=== PATIENT | male | born 1955 | race Caucasian/White ===

== ENCOUNTER 2017-12-18 17:30 | Emergency (ER) | payer MEDICAID ==
[2017-12-18] MEDS ORDERED: KETOROLAC TROMETHAMINE 30MG/ML ONE (18:01)
== END 2017-12-18 18:35 | disposition home or self-care (01) ==
LOC: EDH 17:30
DX: G89.29 Other chronic pain (principal); M54.5 Low back pain; M54.2 Cervicalgia; I10 Essential (primary) hypertension; Z88.0 Allergy status to penicillin; Z91.030 Bee allergy status; Z72.0 Tobacco use
CPT/HCPCS: 96372; 99283; J1885

== ENCOUNTER 2022-03-09 11:40 | Emergency (ER) | payer MEDICAID ==
[~2022-03-09] VITALS: Ht 172.7 cm; Wt 61.2 kg
[2022-03-09 12:50] VITALS: BP 152/92
[2022-03-09 12:53] LABS: BASOPHILS % (AUTO) 0.3 % (0.0-5.0); EOSINOPHILS % (AUTO) 0.3 % (0.0-8.0); HEMATOCRIT 42.3 % (42-54); LYMPHOCYTES % (AUTO) 8.6 % (21.0-51.0); MEAN CORPUSCULAR HEMOGLOBIN 33.1 pg (27.0-33.0); MEAN CORPUSCULAR HGB CONC 34.3 g/dL (32.0-36.0); MEAN CORPUSCULAR VOLUME 96.6 fL (79-99); NEUTROPHILS % (AUTO) 76.5 % (40.0-77.0); PLATELET COUNT (AUTO) 165 K/uL (130-400); RED BLOOD CELL COUNT(AUTO) 4.38 MIL/uL (4.50-6.20); RED CELL DISTRIBUTION WIDTH 11.9 % (11.0-15.5); WHITE BLOOD COUNT (AUTO) 9.7 K/uL (4.8-10.8)
[2022-03-09 13:01] LABS: CREATININE 0.6 mg/dL (0.5-1.5); POTASSIUM 4.3 mmol/L (3.5-5.1)
[2022-03-09 13:05] LABS: ALBUMIN 3.7 g/dL (3.5-5.0); BILIRUBIN,TOTAL 0.8 mg/dL (0.2-1.0); TOTAL PROTEIN, SERUM 7.9 g/dL (6.0-8.3)
[2022-03-09] MEDS ORDERED: KETOROLAC 15MG/ML VIAL (15MG/ML) IV ONE (14:00)
[2022-03-09] MEDS ORDERED: MORPHINE 2 MG SYG IVP ONE (14:00)
[2022-03-09] MEDS ORDERED: ONDANSETRON 4MG INJ IVP ONE (14:00)
[2022-03-09] MEDS ORDERED: NAPR500T6 PO (15:47)
== END 2022-03-09 16:16 | disposition home or self-care (01) ==
LOC: EDH 11:40
DX: S70.02XA Contusion of left hip, initial encounter (principal); S70.12XA Contusion of left thigh, initial encounter; I10 Essential (primary) hypertension; Z90.89 Acquired absence of other organs; W01.0XXA Fall on same level from slipping, tripping and stumbling without subsequent striking against object, initial encounter; Y93.89 Activity, other specified; Y92.89 Other specified places as the place of occurrence of the external cause; Y99.8 Other external cause status
CPT/HCPCS: 36415; 72192; 73502; 73610; 80053; 85025; 96374; 96375; 99285; J1885; J2405

== ENCOUNTER 2024-12-24 18:23 | Emergency (ER) | payer OTHER, MEDICARE ==
[~2024-12-24] VITALS: Ht 172.7 cm; Wt 67.1 kg
[~2024-12-24 18:23] MED LIST: NAPR-1506 PO
[2024-12-24 18:43] VITALS: BP 145/86; PULSE 81; RESP 16; TEMP 98.4; O2SAT 97
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
[2024-12-24] MEDS: HYDROcodone/APAP 5/325 1 TAB TABLET PO ONE (19:13)
--- NOTE | 2024-12-24 19:39 | NUR ---
HOME ADDRESS IS [address] [place] [address]
[2024-12-25] MEDS ORDERED: ACET-66 PO (15:27)
[2024-12-25] MEDS ORDERED: DICL100G32 TP (15:27)
== END 2024-12-24 19:46 | disposition home or self-care (01) ==
LOC: EDH 18:23
DX: G89.29 Other chronic pain (principal); M25.561 Pain in right knee; E78.00 Pure hypercholesterolemia, unspecified; I10 Essential (primary) hypertension; Z88.0 Allergy status to penicillin; Z91.030 Bee allergy status
CPT/HCPCS: 99283

== ENCOUNTER 2024-12-25 14:01 | Emergency (ER) | payer OTHER, MEDICARE ==
[~2024-12-25] VITALS: Ht 172.7 cm; Wt 65.8 kg
--- NOTE | 2024-12-25 14:44 | HMCIMG ---
KNEE 3VWS RT HISTORY: Chronic knee pain COMPARISON: None TECHNIQUE: 3 images of right knee were obtained. FINDINGS: Postop changes are seen of the right proximal tibia. There is no acute displaced fracture or dislocation. There is soft tissue swelling. Degenerative changes are seen. IMPRESSION: 1. Findings as described above.
[2024-12-25] MEDS ORDERED: DICL100G32 TP (15:27)
[2024-12-25] MEDS ORDERED: ACET-66 PO (15:27)
--- NOTE | 2024-12-25 15:28 | ERN ---
ED Note History of Present Illness Stated Complaint: RIGHT KNEE PAIN Chief Complaint: Knee Injury/Swelling Time Seen by MD: 14:03 Time Seen by Midlevel: 14:03 Dictation: 69-year-old male who presents to the ED for evaluation of right knee pain and he has had for the past six weeks. Patient reports pain and swelling. Reports he has been seen and multiple facilities over the past few days requesting hydrocodone since he ran out. [place] [facility] [place] and verbalized x-rays were negative but was not prescribed any pain medications. Denies any new trauma, injuries. Allergies: Coded Allergies: Penicillins (Unverified Allergy, Unknown, 12/24/24) bee pollen (Unverified Allergy, Unknown, 12/24/24) bee venom protein (honey bee) (Unverified Allergy, Unknown, 12/24/24) Home Meds Active Scripts Naproxen (Naproxen) 500 Mg Tablet., 500 MG PO BIDPC, #15 TAB Prov:RICK BARTON 03/09/22 Past Medical History Past Medical History: High Cholesterol, Hypertension Additional Past Medical Hx: NECK AND RIB FX Surgical History: None RN Note Reviewed/Agreed w/PFSH: Yes Review of System Dictation Constitutional: Negative for fever,chills, and weight loss Eyes: Negative for injury, pain,redness, and discharge ENT: Negative for injury,pain or swelling Cardiovascular: Negative for chest pain, palpitations, and edema Respiratory: Negative for shortness of breath, cough, and wheezing, Abdomen/GI: Negative for abdominal pain, nausea, vomiting, diarrhea, and constipation Back: Negative for injury and pain : Negative for injury, bleeding and discharge MS/Extremity: Negative for injury and deformity Skin: Negative for rash, and discoloration Neuro: Negative for headache, weakness, numbness, tingling, and seizure Psych: Negative for suicide ideation, homicidal ideation, and hallucinations Review of Systems: was completed Initial Vital Sign VS Vital Signs Date Time Temp Pulse Resp B/P (MAP) Pulse Ox O2 Delivery O2 Flow Rate FiO2 12/25/24 14:03 98.1 80 16 100/74 98 Room Air 0 Physical Exam Dictation General: awake, alert, NAD Head/Face: Normocephalic, atraumatic Eyes: PERRL, EOMI, vision at baseline ENT: oral cavity clear, TMs clear, no signs of infection Neck: Trachea midline, supple, no nuchal rigidity Cardiovascular: RRR, normal S1/S2, No MRGs, no JVD Respiratory: CTAB, no respiratory distress, No rales or wheezes Abdomen: Soft, non-tender, non-distended, normal bowel sounds, no guarding or rebound. Skin: Warm, dry, normal turgor, no rash MS/Extremity: Pulses equal, no cyanosis, neurovascular intact, limited ROM secondary to pain Neuro: COAx4, GCS 15, strength 5/5, CN 2-12 intact, normal cerebellar exam, normal gait, Psych: Normal behavior, mood, and affect normal Results (Laboratory/Radiology) Laboratory/Radiology REASON: chronic knee pain ORDERING PHYSICIAN: JOAO YANEZ PROCEDURE: KNEE 3V RT - KNEE 3VWS RT KNEE 3VWS RT HISTORY: Chronic knee pain COMPARISON: None TECHNIQUE: 3 images of right knee were obtained. FINDINGS: Postop changes are seen of the right proximal tibia. There is no acute displaced fracture or dislocation. There is soft tissue swelling. Degenerative changes are seen. IMPRESSION: 1. Findings as described above. Labs Reviewed?: Yes ED Course ED Course Orders Procedure Category Date Status Time Ketorolac PHA 12/25/24 Complete Tromethamine 15mg/Ml 14:30 Knee 3vws Rt RAD 12/25/24 Resulted 14:12 Current Medications Medications (Trade) Dose Ordered Sig/Kim Route PRN Reason Start Time Stop Time Status Last Admin Dose Admin Ketorolac Tromethamine (toRADol) 15 mg ONCE ONCE IM 12/25/24 14:30 12/25/24 14:31 DC Vital Signs Date Time Temp Pulse Resp B/P (MAP) Pulse Ox O2 Delivery O2 Flow Rate FiO2 12/25/24 14:03 98.1 80 16 100/74 98 Room Air 0 Medical Decision Making MDM MDM: Differential diagnosis: Chronic knee pain, osteoarthritis, fracture, dislocation Need for hospitalization: Patient does meet criteria for hospitalization. Need for emergency major/minor surgery: No I independently interpreted the test that were performed, results were reviewed by me and considered findings on radiology if ordered. Medical management and examination interpretation discussions were had by me with other qualified healthcare professionals as indicated for the patient's care. 69-year-old male who presents to the ED for evaluation of right knee pain and he has had for the past six weeks. Patient reports pain and swelling. Reports he has been seen and multiple facilities over the past few days requesting hydrocodone since he ran out. Patient [place] [facility] [place] and verbalized x-rays were negative but was not prescribed any pain medications. Denies any new trauma, injuries. Patient was some mild swelling to the right knee. No overlying erythema, skin changes. Patient afebrile, nonseptic appearing with low suspicion for septic arthritis. Patient's x-ray showed no acute finding. Patient was given pain medication here in the ER will be discharged home in stable dose recommended follow up with PCP for stronger pain medication and recommended to follow up with pain management if continues with pain sat prescribe him the medication he wants. DX & DISP Disposition: Discharge Departure Impression: Primary Impression: Chronic pain of right knee Condition: Stable Scripts Diclofenac Sodium (Diclofenac Sodium) 3 % Gel..gram. 1 APPL TP BID for 30 Days, #100 GM 0 Refills Prov: JOAO YANEZ 12/25/24 Acetaminophen (Acetaminophen) 500 Mg Tablet 1 TAB PO Q6HPRN PRN for pain or fever for 15 Days, #60 TAB 0 Refills Prov: JOAO YANEZ 12/25/24 Additional Instructions: DISCHARGE HOME. REST. FOLLOW UP WITH PRIMARY CARE DRJoy IN 24 HOURS. RETURN TO THE ER FOR ANY ACUTE CHANGE. PATIENT WAS ALSO ADVISED TO FOLLOW-UP WITH PRIMARY CARE PHYSICIAN IN 1 TO 2 DAYS FOR CONTINUED MONITORING. ALL INSTRUCTIONS WERE GIVEN TO [place]S TERM AND PATIENT AGREEABLE TO DISCHARGE AND PROPER FOLLOW-UP. Referrals: LUCIO HERRERA MD (PCP) I have reviewed the case, and I agree with, Diagnosis and Plan JOAO YANEZ Dec 25, 2024 15:28
[2024-12-25] MEDS: ketOROlac 15MG/ML VIAL (15MG/ML) IM ONE (15:53)
[2024-12-25 16:11] VITALS: BP 111/68; PULSE 78; RESP 16; TEMP 97.8; O2SAT 100
== END 2024-12-25 16:22 | disposition home or self-care (01) ==
LOC: EDH 14:01
DX: G89.29 Other chronic pain (principal); M25.561 Pain in right knee; E78.00 Pure hypercholesterolemia, unspecified; I10 Essential (primary) hypertension; Z88.0 Allergy status to penicillin; Z91.030 Bee allergy status
CPT/HCPCS: 99283; 73562; 96372; J1885

== ENCOUNTER 2025-01-03 21:08 | Emergency (ER) | payer OTHER, MEDICARE ==
[~2025-01-03] VITALS: Ht 172.7 cm; Wt 59.0 kg
[~2025-01-03 21:08] MED LIST changes: +ACET-66 PO; +DICL100G32 TP
--- NOTE | 2025-01-03 22:04 | NUR ---
PT OUTSIDE SMOKING, REPORTED DURING TRIAGE HE WAS A " FORMER SMOKER"
--- NOTE | 2025-01-03 22:41 | NUR ---
PT RETURNED TO ROOM AT THIS TIME FROM SMOKING CIGARETTE
[2025-01-03 22:55] VITALS: TEMP 98.3
[2025-01-03 23:39] LABS: BASOPHILS # (AUTO) 0.04 K/uL (0.00-0.20); BASOPHILS % (AUTO) 0.6 % (0.0-5.0); EOSINOPHILS # (AUTO) 0.26 K/uL (0.00-0.70); EOSINOPHILS % (AUTO) 3.8 % (0.0-8.0); HEMATOCRIT 33.1 % (42-54); IMMATURE GRANULOCYTE ABSOLUTE 0.02 K/uL (0-1); LYMPHOCYTES # (AUTO) 1.5 K/uL (1.0-4.8); LYMPHOCYTES % (AUTO) 22.5 % (21.0-51.0); MEAN CORPUSCULAR HEMOGLOBIN 30.4 pg (27.0-33.0); MEAN CORPUSCULAR HGB CONC 32.3 g/dL (32.0-36.0); MONOCYTES % (AUTO) 14.1 % (3.0-13.0); NEUTROPHILS % (AUTO) 58.7 % (40.0-77.0); PLATELET COUNT (AUTO) 282 K/uL (130-400); RED BLOOD CELL COUNT(AUTO) 3.52 MIL/uL (4.50-6.20); RED CELL DISTRIBUTION WIDTH 14.4 % (11.0-15.5); WHITE BLOOD COUNT (AUTO) 6.8 K/uL (4.8-10.8)
[2025-01-03 23:47] LABS: CREATININE 0.7 mg/dL (0.5-1.3); POTASSIUM 3.7 mmol/L (3.5-5.1)
[2025-01-03 23:53] LABS: BILIRUBIN,TOTAL 0.3 mg/dL (0.2-1.0); TOTAL PROTEIN, SERUM 6.7 g/dL (6.0-8.3)
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
--- NOTE | 2025-01-04 01:25 | NUR ---
PT OUTSIDE SMOKING
[2025-01-04] MEDS: furoSEMIDE 20MG VIAL IV ONE (02:20)
[2025-01-04 03:53] VITALS: BP 140/83; PULSE 80; RESP 14; O2SAT 97
--- NOTE | 2025-01-04 08:25 | HMCIMG ---
Exam Type: US VENOUS DOPPLER BILATERAL Clinical Information: swelling post surgery Comparison: None Findings: The examination shows normal deep venous system. There is normal compressibility at all levels. There is no intraluminal clot. There is no occlusion. Adequate response is obtained on augmentation. Impression: No evidence of DVT.
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
== END 2025-01-04 03:55 | disposition home or self-care (01) ==
LOC: EDH 21:08
DX: R60.0 Localized edema (principal); E78.00 Pure hypercholesterolemia, unspecified; I10 Essential (primary) hypertension; Z88.0 Allergy status to penicillin; Z90.89 Acquired absence of other organs; Z91.030 Bee allergy status
CPT/HCPCS: 99284; 93970; 80053; 85025; 36415; 73565; 84145; 96374; J1940; 99283; 73560

== ENCOUNTER 2025-03-19 17:11 | Emergency (ER) | payer OTHER, MEDICARE ==
[~2025-03-19] VITALS: Ht 172.7 cm; Wt 68.0 kg
[2025-03-19 17:20] VITALS: TEMP 98.5
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
[2025-03-19] MEDS: ketOROlac 15MG/ML VIAL (15MG/ML) IV SCH (18:04)
[2025-03-19 18:08] LABS: BASOPHILS # (AUTO) 0.03 K/uL (0.00-0.20); BASOPHILS % (AUTO) 0.5 % (0.0-5.0); EOSINOPHILS # (AUTO) 0.18 K/uL (0.00-0.70); EOSINOPHILS % (AUTO) 3.1 % (0.0-8.0); HEMATOCRIT 33.4 % (42-54); IMMATURE GRANULOCYTE ABSOLUTE 0.02 K/uL (0-1); LYMPHOCYTES # (AUTO) 0.9 K/uL (1.0-4.8); LYMPHOCYTES % (AUTO) 14.4 % (21.0-51.0); MEAN CORPUSCULAR HEMOGLOBIN 32.5 pg (27.0-33.0); MEAN CORPUSCULAR HGB CONC 34.4 g/dL (32.0-36.0); MEAN CORPUSCULAR VOLUME 94.4 fL (79-99); MONOCYTES # (AUTO) 0.7 K/uL (0.1-1.0); MONOCYTES % (AUTO) 12.2 % (3.0-13.0); NEUTROPHILS # (AUTO) 4.1 K/uL (1.8-7.7); NEUTROPHILS % (AUTO) 69.5 % (40.0-77.0); PLATELET COUNT (AUTO) 162 K/uL (130-400); RED BLOOD CELL COUNT(AUTO) 3.54 MIL/uL (4.50-6.20); RED CELL DISTRIBUTION WIDTH 14.2 % (11.0-15.5); WHITE BLOOD COUNT (AUTO) 5.9 K/uL (4.8-10.8)
[2025-03-19 18:16] LABS: CREATININE 0.6 mg/dL (0.5-1.3); POTASSIUM 3.3 mmol/L (3.5-5.1)
[2025-03-19 18:48] LABS: B-TYPE NATRIURETIC PEPTIDE 86 pg/mL (0-100)
[2025-03-19] MEDS ORDERED: SULF1TAB42 PO (19:14)
[2025-03-19] MEDS: sulfaMETHOX-TMP DS 800/160 TAB PO SCH (19:29)
[2025-03-19] MEDS: PoTASSium BIcarbonate/CIT AC 25 MEQ TABLET.EFF PO SCH (19:29)
[2025-03-19] MEDS: HYDROcodone/APAP 5/325 1 TAB TABLET PO SCH (19:29)
[2025-03-19 19:33] VITALS: BP 139/80; PULSE 87; RESP 17; O2SAT 98
--- NOTE | 2025-03-20 02:37 | HMCIMG ---
EXAM: US for Deep Venous Thrombosis, bilateral Lower Extremity. CLINICAL HISTORY: Leg swelling. TECHNIQUE: Real-time ultrasound scan of the veins of the bilateral lower extremity with color Doppler flow, spectral waveform analysis and compression. COMPARISON: None provided. FINDINGS: DEEP VEINS: The common femoral, superficial femoral, and popliteal veins are echolucent and compressible. There is normal color Doppler flow throughout. The visualized calf veins appear patent. SOFT TISSUES: There is a 5.4 x 6.4 x 1.5 cm suprapatellar effusion on the right side. IMPRESSION: No deep venous thrombosis within the bilateral lower extremity veins. Suprapatellar effusion on the right side. /[place]
== END 2025-03-19 19:58 | disposition home or self-care (01) ==
LOC: EDH 17:11
DX: L03.115 Cellulitis of right lower limb (principal); L03.116 Cellulitis of left lower limb; M25.469 Effusion, unspecified knee; E78.00 Pure hypercholesterolemia, unspecified; I10 Essential (primary) hypertension; Z88.0 Allergy status to penicillin; Z90.89 Acquired absence of other organs; Z91.030 Bee allergy status
CPT/HCPCS: 99284; 93970; 96374; 80048; 83880; 85025; 36415; J1885